=== PATIENT | female | born 1995 | race Caucasian/White ===

== ENCOUNTER → 2017-12-08 | Outpatient (CLI) | payer OTHER | END | disposition home or self-care (01) | LOC: C.LABSPEC 15:52 | PROVIDERS: ATTEND Obstetrics & Gynecology | DX: O26.899 Other specified pregnancy related conditions, unspecified trimester (principal); Z3A.00 Weeks of gestation of pregnancy not specified ==

== ENCOUNTER 2023-07-22 05:52 | Inpatient (IN) ==
--- NOTE | 2023-07-12 16:22 | Anesthesiology Consultation ---
Date of Service July 12, 2023 Assessment & Plan (1) Encounter for pre-operative examination: - CSE L3-L4 1 attempts. - Per special education curriculum specialist on 07/12/23: No known infectious disease contacts, current infectious disease symptoms in past 10 days or COVID positive test result in the past 30 days. 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 History Surgery Operation Date: 07/22/23 07:30 Proposed Procedures p Section in LD (Delivery of Baby through Abdominal Incision) - Mariann Mckeon MD, FACOG Height/Weight Height: 5 ft 7 in Weight: 123.377 kg Allergies Allergy/AdvReac Type Severity Reaction Status Date / Time No Known Drug Allergies Allergy Verified 07/12/23 15:27 adhesive AdvReac Mild Rash Verified 07/12/23 15: Medications Home Medications Medication Instructions Recorded Confirmed Last Taken loratadine 10 mg tablet 10 mg PO HS PRN Allergy Symptoms 03/17/18 07/12/23 11/07/19 montelukast 10 mg tablet 10 mg PO HS 11/08/19 07/12/23 11/07/19 magnesium oxide 400 mg PO HS #30 caps 07/13/21 07/12/23 Unknown acetone (urine) test (Ketone Urine #50 ea 03/22/23 07/12/23 Unknown Test strips) blood sugar diagnostic (OneTouch #150 ea 03/22/23 07/12/23 Unknown Verio test strips) blood-glucose meter (OneTouch #1 ea 03/22/23 07/12/23 Unknown Verio Reflect Meter) lancets 33 gauge (OneTouch Delica #150 ea 03/22/23 07/12/23 Unknown Plus Lancet) insulin NPH isoph U-100 human 100 10 unit (0.1 mL) subcut QPM #15 mL 06/20/23 07/12/23 Unknown unit/mL (3 mL) subcutaneous pen (Humulin N NPH U-100 Insulin KwikPen) pen needle, diabetic 32 gauge x #150 ea 06/20/23 07/12/23 Unknown 32" (BD Ultra-Fine Alyson Pen Needle) aspirin 81 mg capsule 81 mg PO HS 07/12/23 07/12/23 Unknown famotidine 40 mg tablet 40 mg PO HS 07/12/23 07/12/23 Unknown fluticasone propionate 50 1 spray intranasal BID 07/12/23 07/12/23 Unknown mcg/actuation nasal spray,suspension insulin lispro 100 unit/mL 10 - 12 unit subcut TID 07/12/23 07/12/23 Unknown subcutaneous pen (Humalog KwikPen (U-100) Insulin) vits no.126-ferrous fum 1 tab PO HS 07/12/23 07/12/23 Unknown 28 mg iron-folic acid 800 mcg tablet (Classic ) riboflavin (vitamin B2) 400 mg 400 mg PO HS 07/12/23 07/12/23 Unknown tablet venlafaxine 75 mg capsule,extended 75 mg PO HS 07/12/23 07/12/23 Unknown release 24 hr Past Medical History Medical History Allergic rhinitis Anxiety Current every day vaping quit Environmental and seasonal allergies GERD (gastroesophageal reflux disease) Gestational diabetes History of COVID-19 03/2023, tested thru pcp, not hosp; fever, headache, nasal congestion>resolved Hx of migraines Paroxysmal SVT (supraventricular tachycardia) had cardiac ablation 05/2022 at [facility] PONV (postoperative nausea and vomiting) Varicella vaccination Past Family History Family History Other Colon cancer Diabetes Hypertension Denies family history of Ovarian cancer Breast cancer Past Surgical History Surgical History H/O cardiac radiofrequency ablation 05/2022, [facility]; f/u pcp-cardio dismissed pt. History of bunionectomy of both great toes History of carpal tunnel release rt. History of lumpectomy of right breast benign History of tonsillectomy Previous section [place] teeth extracted Social History Smoking Status: Former smoker Do You Dip or Chew Tobacco: No Smoking End Date: summer 2022 quit vaping Hx Alcohol Use: Yes Alcohol type: wine Alcohol Intake Frequency Comment: occassional but not while Hx Substance Use: No substance use type: does not use
--- NOTE | 2023-07-21 17:02 | History & Physical Report ---
Date of Service July 21, 2023 Assessment & Plan (1) Previous delivery affecting , antepartum: Plan: IUP at 39+ weeks with prior LTCS for NRFRT followed by successful cervix today is unfavorable for IOL, will proceed with repeat LTCS unless labor or SPROM prior to 3/1 AM. the procedure and it's risks reviewed with the patient. all questions answered to her satisfaction. History of Present Illness Primary Care Provider: Jarret Levi MD Patient is a 27 yo EDC 07/24/23 presents 39 weeks for repeat LTCS. she had LTCS with her first delivery then successfully with her second baby. this is complicated by GDM on insulin. no spontaneous contractions yet. growth scans and testing has been reassuring although on last growth scan EFW was 97%tile & AC was 95%tile. GBS - negative Allergies Allergy/AdvReac Type Severity Reaction Status Date / Time No Known Drug Allergies Allergy Verified 07/21/23 15:35 adhesive AdvReac Mild Rash Verified 07/21/23 15:35 Home Medications Medication Instructions Recorded Confirmed Type loratadine 10 mg tablet 10 mg PO HS PRN Allergy Symptoms 03/17/18 07/21/23 History montelukast 10 mg tablet 10 mg PO HS 11/08/19 07/21/23 History magnesium oxide 400 mg PO HS #30 caps 07/13/21 07/21/23 Rx acetone (urine) test (Ketone Urine #50 ea 03/22/23 07/21/23 Rx Test strips) blood sugar diagnostic (OneTouch #150 ea 03/22/23 07/21/23 Rx Verio test strips) blood-glucose meter (OneTouch #1 ea 03/22/23 07/21/23 Rx Verio Reflect Meter) lancets 33 gauge (OneTouch Delica #150 ea 03/22/23 07/21/23 Rx Plus Lancet) insulin NPH isoph U-100 human 100 10 unit (0.1 mL) subcut QPM #15 mL 06/20/23 07/21/23 Rx unit/mL (3 mL) subcutaneous pen (Humulin N NPH U-100 Insulin KwikPen) pen needle, diabetic 32 gauge x #150 ea 06/20/23 07/21/23 Rx 5/32" (BD Ultra-Fine Alyson Pen Needle) aspirin 81 mg capsule 81 mg PO HS 07/12/23 07/21/23 History famotidine 40 mg tablet 40 mg PO HS 07/12/23 07/21/23 History fluticasone propionate 50 1 spray intranasal BID 07/12/23 07/21/23 History mcg/actuation nasal spray,suspension insulin lispro 100 unit/mL 10 - 12 unit subcut TID 07/12/23 07/21/23 History subcutaneous pen (Humalog KwikPen (U-100) Insulin) vits no.126-ferrous fum 1 tab PO HS 07/12/23 07/21/23 History 28 mg iron-folic acid 800 mcg tablet (Classic ) riboflavin (vitamin B2) 400 mg 400 mg PO HS 07/12/23 07/21/23 History tablet venlafaxine 75 mg capsule,extended 75 mg PO HS 07/12/23 07/21/23 History release 24 hr Patient History Medical History Allergic rhinitis Anxiety Current every day vaping quit Environmental and seasonal allergies GERD (gastroesophageal reflux disease) Gestational diabetes History of COVID-19 03/2023, tested thru pcp, not hosp; fever, headache, nasal congestion>resolved Hx of migraines Paroxysmal SVT (supraventricular tachycardia) had cardiac ablation 05/2022 at [facility] PONV (postoperative nausea and vomiting) Varicella vaccination Surgical History H/O cardiac radiofrequency ablation 05/2022, [facility]; f/u pcp-cardio dismissed pt. History of bunionectomy of both great toes History of carpal tunnel release rt. 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: No Beliefs That Will Affect Care: None marital status: Single marital status details: Helene Madsen([phone] Current Living Situation: Family Current Living Situation Comment: lives with daughters current occupational status: employed 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 Feels Safe at Home: Yes Assistive Devices: None Review of Systems All systems reviewed & are unremarkable except as noted in HPI & below Physical Exam Constitutional: WD/WN, vitals as above Psychiatric: A+Ox3, euthymic affect Genitourinary: OB Exam Abdomen: + vertex, + estimated weight (8-9 pounds) and + irregular contractions Manual OB Exam: + cervical dilation 1 cm, + cervical effacement 70% and + station (-3) OB Exam Monitor Tracing: + external FHT monitor used, + external uterine monitor used, + category I and + normal FHT variability Coding Level of Care Code None Diagnoses Previous delivery affecting , antepartum O34.219
[2023-07-22] MEDS ORDERED: SODIUM CHLORIDE 0.9% 250 ML IV PRN (06:03)
[2023-07-22 06:23] LABS: Basophils # (auto) 0.04 K/uL (0.00-0.20); Basophils % (auto) 0.3 %; Eosinophils # (auto) 0.05 K/uL (0.00-0.50); Eosinophils % (auto) 0.4 %; Hematocrit (blood only) 42.5 % (37.0-47.0); Hemoglobin 14.4 g/dl (12.0-16.0); Immature Granulocytes # (auto) 0.09 K/uL (0.01-0.20); Immature Granulocytes % (auto) 0.7 %; Lymphocytes # (auto) 1.66 K/uL (1.20-3.40); Mean Corpuscular Hemoglobin 28.2 pg (25.0-34.0); Mean Corpuscular Hgb Conc 33.9 g/dL (32.0-36.0); Mean Corpuscular Volume 83.2 fL (80.0-100.0); Mean Platelet Volume 11.2 fL (9.4-12.4); Monocytes # (auto) 0.88 K/uL (0.11-0.59); Monocytes % (auto) 6.9 %; Neutrophils # (auto) 10.03 K/uL (1.40-6.50); Neutrophils % (auto) 78.7 %; Platelet Count 234 K/uL (130-400); RDW Coefficient of Variation 14.4 % (11.5-14.5); RDW Standard Deviation 42.8 fL (36.4-46.3); Red Blood Count 5.11 M/uL (4.20-5.40); White Blood Count 12.75 K/ul (4.8-10.8)
[2023-07-22] MEDS: LACTATED RINGER'S 1,000 ML IV SCH ×2 (06:23→19:35)
[2023-07-22] MEDS: CITRIC ACID/SODIUM CITRATE 15 ML UDC PO SCH (07:35)
[2023-07-22] MEDS ORDERED: MoRPHine SULFATE PF 1 MG/ML 10 ML AMP/VIAL ONE (07:37)
--- NOTE | 2023-07-22 07:37 | History & Physical Bridge Note ---
Date of Service July 22, 2023 History & Physical Bridge Note I have examined the patient, reviewed the History & Physical and in the interval since the performance of the History & Physical I have noted the following changes of clinical significance: no changes noted
[2023-07-22] MEDS: ceFAZolin 3,000 MG in DEXTROSE 5% 50 ML IV SCH (08:14)
[2023-07-22] MEDS ORDERED: HYDROmorphone INJ 0.5 MG/0.5 ML SYR IV PRN (09:03)
[2023-07-22] MEDS ORDERED: PROMETHAZINE HCL 6.25 MG in SODIUM CHLORIDE 0.9% 50 ML IV PRN (09:03)
[2023-07-22] MEDS ORDERED: NALOXONE HCL 1 MG in SODIUM CHLORIDE 0.9% 1,000 ML IV PRN (09:03)
[2023-07-22] MEDS ORDERED: MoRPHine SULFATE 2 MG/ML CARP IV PRN (09:03)
[2023-07-22] MEDS ORDERED: ONDANSETRON INJ 2 MG/ML 2 ML VIAL IV PRN ×2 (09:03→10:01)
[2023-07-22] MEDS ORDERED: ePHEDrine sulfate 50 MG/ML AMP IV PRN (09:03)
[2023-07-22] MEDS ORDERED: NALOXONE HCL 0.4 MG/1 ML VIAL/CARP IV PRN (09:03)
[2023-07-22] MEDS ORDERED: NALOXONE HCL 0.08 MG in SYRINGE 1.8 ML IV PRN (09:03)
[2023-07-22] MEDS ORDERED: MEPERIDINE HCL 25 MG/ML CARP/VIAL IV PRN (09:03)
[2023-07-22] MEDS ORDERED: LACTATED RINGER'S 500 ML IV PRN (09:03)
[2023-07-22] MEDS ORDERED: DC INTRASPINAL MORPHINE SCH (09:15)
[2023-07-22] MEDS ORDERED: NO NARCOTICS OR SEDATIVES SCH (09:15)
[2023-07-22] MEDS ORDERED: OXYTOCIN 10 UNITS/ML VIAL ONE ×2 (09:17)
[2023-07-22] MEDS ORDERED: ePHEDrine sulfate 50 MG/5 ML SYR ONE (09:18)
--- NOTE | 2023-07-22 09:23 | Post Operative Brief Note ---
PG Immediate Post Op with CF Date of Surgery July 22, 2023 Pre & Post Diagnosis Operation Date: 07/22/23 07:30 Pre-Op Diagnosis: Prior section. Large for gestational age. GDM on insulin. Post-Op Diagnosis: Prior section. Large for gestational age. GDM on insulin. Delivery of live female child at 0844. I identified the patient and participated in the time-out.: Yes Procedure Operation Date: 07/22/23 07:30 Actual Procedures p Section (Delivery of Baby Through Abdominal Incision)delivery of live female child at 0844. - Mariann Mckeon MD, FACOG Surgeon Mariann Mckeon MD, FACOG Inspector Circuitry Negative Angelica Rivers MD, Damri Chu DO Estimated Blood Loss 797 (QBL) Findings Consistent with Post-Op Diagnosis Specimens Specimen Description: Placenta: hold Cord blood Drains [place] Catheter (inserted after spinal, draining clear yellow urine) Anesthesia Type Spinal Complications none Disposition Accompanied Patient To Recovery: Yes Disposition: L&D
[2023-07-22] MEDS ORDERED: MAGNESIUM HYDROXIDE SUSP 30 ML UDC PO PRN (10:01)
[2023-07-22] MEDS ORDERED: BENZOCAINE 20% SPRY 85 APPLN/85 GM CAN EXT PRN (10:01)
[2023-07-22] MEDS ORDERED: LORATADINE 10 MG TAB PO PRN (10:01)
[2023-07-22] MEDS ORDERED: HYDROCORTISONE ACETATE 25 MG SUPP PR PRN (10:01)
[2023-07-22] MEDS ORDERED: SENNA 8.6 MG TAB PO PRN (10:01)
--- NOTE | 2023-07-22 10:05 | Operative Report ---
PG Post Operative Report Pre & Post Diagnosis Operation Date: 07/22/23 07:30 Pre-Op Diagnosis: Prior section. Large for gestational age. GDM on insulin. Post-Op Diagnosis: Prior section. Large for gestational age. GDM on insulin. Delivery of live female child at 0844. I identified the patient and participated in the time-out.: Yes Procedure Operation Date: 07/22/23 07:30 Actual Procedures p Section (Delivery of Baby Through Abdominal Incision)delivery of live female child at 0844. - Mariann Mckeon MD, FACOG Surgeon Mariann Mckeon MD, FACOG Rug Setter [place] Angelica Rivers MD, Damir Chu DO Estimated Blood Loss 797 Findings Consistent with Post-Op Diagnosis Specimens placenta to hold Drains Castaneda catheter to straight drainage - clear urine at end of the case Anesthesia Type Spinal Complications none Disposition Accompanied Patient To Recovery: Yes Disposition: L&D Indications Patient is a 27-year-old 3 para 2-0-0-2 female EDC of 07/24/2023 who presents for repeat section. Her first section was done with her first because of nonreassuring heart rate pattern. She then had a successful with her second . This , she has GDM on insulin but she was hoping to again. However spontaneous labor has not occurred by the date of her default section schedule date, therefore we will proceed with repeat section. Description of Procedure After the patient received adequate subarachnoid block she was prepped and draped in usual sterile fashion. Low transverse skin incision was made through her prior scar and carried to the fascia with the same scalpel. The fascial incision was then extended with Alcocer scissors. The edges were then grasped with Tami clamps and the underlying rectus muscles bluntly sharply dissected off of the overlying fascia. The rectus muscles were then bluntly divided on the midline and the underlying peritoneum elevated and entered sharply with Metzenbaum scissors. The bladder was then taken down off the anterior surface of the uterus with Metzenbaum scissors and placed behind the bladder blade. The lower uterine segment was entered with a scalpel and the incision was extended by expanding the opening with an inferior superior stretching motion. Membranes were then ruptured for very thin meconium stained fluid. was delivered from the vertex presentation with the assistance of the Kiwi vacuum and moderate fundal pressure. After the head was delivered a nuchal cord was then reduced prior to delivering the shoulders. The was vigorous crying and moving all 4 limbs after initial stimulation. The cord was clamped and cut and the infant was handed off to Dr. Stokes who was in attendance as rocket engine component mechanic. The placenta was then manually removed. The uterus was then exteriorized to cover the clean lap sponge. The uterine cavity was explored and was found to be free of any retained tissue or membranes. Uterus was then closed in a running locking imbricating fashion in 2 layers with 0 Monocryl. Hemostasis was noted to be excellent on the incision. The posterior cul-de-sac was suctioned for small amount of blood. After examining the incision once more, the uterus was placed gently back inside the abdominal cavity. The incision continued to have excellent hemostasis and the gutters were clear of any extra clot or fluid. The rectus muscle were then brought together on the midline with individual stitches of 0 Monocryl. The fascia was closed in a running fashion with 0 Vicryl. After irrigating the subcutaneous layer, the skin edges were reapproximated using a subcuticular stitch of 4-0 Vicryl. Patient tolerated procedure well and was stable upon arrival back in labor and delivery. I attest to the content of the Intraoperative Record and any orders documented therein. Any exceptions are noted below. OB Procedure Charges 88134
[2023-07-22] MEDS: OXYTOCIN 30 UNITS/LR 1,003 ML IV SCH (10:20)
[2023-07-22] MEDS: KETOROLAC 30 MG/ML VIAL IV PRN (12:42)
[2023-07-22] MEDS: MoRPHine SULFATE PF 1 MG/ML 10 ML AMP/VIAL INT SPINAL ONE (12:50)
[2023-07-22] MEDS: SODIUM CHLORIDE 0.9% 1,000 ML IV SCH (12:51)
[2023-07-22] MEDS: DIPHTHER/TETAN/PERTUS Vaccine (Tdap, Adol/Adult) 0.5mL IM ONE (12:52)
--- NOTE | 2023-07-22 15:13 | Anesthesiology Progress Note ---
Date of Service July 22, 2023 Anesthesia Post Procedure Vital Signs Vital Signs: Temp Pulse Resp BP Pulse Ox O2 Del Method 07/22/23 12:03 93 H 96 07/22/23 11:58 82 104/66 98 07/22/23 11:53 93 H 99 07/22/23 11:48 78 108/55 L 97 07/22/23 11:43 81 98 07/22/23 11:38 84 114/58 L 98 07/22/23 11:33 80 97 07/22/23 11:28 36.7 C 22 07/22/23 11:28 98 07/22/23 11:28 80 07/22/23 11:28 78 116/62 07/22/23 11:25 96 H 90 07/22/23 11:23 84 98 07/22/23 11:18 85 114/68 99 07/22/23 11:13 83 99 07/22/23 11:09 85 116/71 07/22/23 11:08 81 98 07/22/23 11:03 79 100 07/22/23 10:58 73 103/60 99 07/22/23 10:53 73 99 07/22/23 10:48 98 07/22/23 10:48 70 07/22/23 10:48 68 108/60 07/22/23 10:43 82 98 07/22/23 10:41 85 93 07/22/23 10:38 66 105/63 98 07/22/23 10:33 74 99 07/22/23 10:28 36.5 C 18 07/22/23 10:28 71 102/65 99 07/22/23 10:23 75 99 07/22/23 10:18 100 07/22/23 10:18 78 07/22/23 10:18 69 108/59 L 07/22/23 10:13 73 100 07/22/23 10:08 74 109/59 L 100 07/22/23 10:03 88 100 07/22/23 09:58 80 102/59 L 100 07/22/23 09:53 86 100 07/22/23 09:48 99 07/22/23 09:48 82 07/22/23 09:48 82 101/59 L 07/22/23 09:45 75 82 L 07/22/23 09:43 77 99 07/22/23 09:39 85 84 L 07/22/23 09:38 79 96/52 L 99 07/22/23 09:33 83 99 07/22/23 09:28 36.5 C 18 07/22/23 09:28 82 99/56 L 99 07/22/23 06:10 36.7 C 18 Room Air 07/22/23 06:01 36.7 C 103 H 18 123/74 Transfer of Care Handoff Completed per policy Notes Mental Status: alert / awake / arousable and participated in evaluation Nausea / Vomiting: adequately controlled Pain: adequately controlled Airway Patency, RR, SpO2: stable & adequate BP & HR: stable & adequate Hydration State: stable & adequate Neuraxial Anesthesia: was administered and sensory block is resolving Anesthetic Complications: no major complications apparent and Pt Satisfied with anesthetic care
[2023-07-22] MEDS: NALBUPHINE HCL 5 MG in SYRINGE 0 ML IV PRN (16:19)
[2023-07-22] MEDS: SIMETHICONE 80 MG CHEW PO SCH (19:35)
[2023-07-22] MEDS ORDERED: [UNRECOGNIZED DRUG - REMARK] PO SCH (21:00)
[2023-07-22] MEDS ORDERED: NON-FORMULARY MEDICATION (Riboflavin (Vitamin B2) 400 mg tablet) PO SCH (21:00)
[2023-07-22] MEDS: DOCUSATE SODIUM 100 MG CAP PO SCH (21:02)
[2023-07-22] MEDS: ASPIRIN 81 MG ECTAB PO SCH (21:02)
[2023-07-22] MEDS: VENLAFAXINE HCL XR 75 MG CAPXR PO SCH (21:03)
[2023-07-22] MEDS: MONTELUKAST SODIUM 10 MG TABLET PO SCH (21:03)
[2023-07-22] MEDS: MAGNESIUM OXIDE 400 MG TAB PO SCH (21:04)
[2023-07-22] MEDS: FAMOTIDINE 40 MG TABLET PO SCH (21:04)
[2023-07-22] MEDS: FLUTICASONE PROPIONATE NA SPR 16 GM BTL SCH (21:05)
[2023-07-22] MEDS: diphenhydrAMINE 50 MG/ML VIAL IV PRN (23:24)
[2023-07-23] MEDS ORDERED: MEPERIDINE HCL 50 MG/ML CARP IV PRN (03:03)
[2023-07-23] MEDS ORDERED: diphenhydrAMINE 50 MG/ML VIAL IV PRN (03:03)
[2023-07-23] MEDS ORDERED: PROMETHAZINE HCL 25 MG in SODIUM CHLORIDE 0.9% 50 ML IV PRN (03:03)
[2023-07-23] MEDS ORDERED: KETOROLAC 30 MG/ML VIAL IV PRN (03:03)
[2023-07-23] MEDS ORDERED: diphenhydrAMINE Capsule 25 MG CAP PO PRN (03:03)
--- NOTE | 2023-07-23 06:58 | Obstetrical Progress Note ---
Date of Service July 23, 2023 Assessment & Plan (1) care and examination: Plan: doing well encourage ambulation pain control Admission and Anticipated Discharge Date Admission Date: July 22, 2023 Supervising Physician Co-Signing Physician Notes Resident Physician Supervision Note: I interviewed and examined the patient. Discussed with Dr. Chu and agree with findings and plan as documented in the note. Any exceptions or clarifications are listed here: [None] Documented By: Mariann Mckeon MD, FACOG Subjective 27 yo post day 1 s/p Ambulation: OOB Voiding: dodson out, voiding normally Passing Gas:: Yes Diet Tolerance:: regular diet Lochia:: Small Current Pain Level: Resting comfortably this AM in NAD. Denies KATE, CP, SOB, N/V/D, LE pain/swelling. Review of Systems Review of Systems: reviewed, per HPI Physical Exam Physical Exam: General: patient resting comfortably, NAD, non-toxic in appearance, answers questions appropriately. Skin: warm, dry, intact HEENT: NC/AT, anicteric sclera, conjunctiva without injection, moist mucus membranes. Heart: +S1/S2, regular, no m/r/g Lungs: equal air entry bilaterally, no rales/rhonchi/wheezes Abd: +BS, soft, NT/ND, uterine fundus firm at umbilicus, caesarean incision C/D/I. Ext: warm, no clubbing/cyanosis or edema, Aziza's neg. Neuro: nonfocal, speech intact, no facial droop, moving all extremities on command. Results & Data Vital Signs (Past 12 Hours) Vital Signs Temp Pulse Resp BP Pulse Ox O2 Del Method 07/23/23 03:15 36.9 C 85 16 98/63 L 96 Room Air 07/23/23 01:00 18 98 07/23/23 00:00 18 98 07/22/23 23:00 36.7 C 88 18 103/67 96 Room Air 07/22/23 22:00 18 97 07/22/23 20:55 36.7 C 87 18 104/69 98 Room Air 07/22/23 20:00 18 98 07/22/23 19:00 18 97 Resident Activity Tracking Resident Involvement: Resident Care Provided Care Provided: Adult Hospital Medicine
[2023-07-23 07:31] LABS: Basophils # (auto) 0.05 K/uL (0.00-0.20); Basophils % (auto) 0.5 %; Eosinophils # (auto) 0.14 K/uL (0.00-0.50); Eosinophils % (auto) 1.3 %; Hematocrit (blood only) 37.5 % (37.0-47.0); Hemoglobin 12.6 g/dl (12.0-16.0); Immature Granulocytes # (auto) 0.07 K/uL (0.01-0.20); Immature Granulocytes % (auto) 0.6 %; Lymphocytes # (auto) 1.33 K/uL (1.20-3.40); Mean Corpuscular Hemoglobin 28.8 pg (25.0-34.0); Mean Corpuscular Hgb Conc 33.6 g/dL (32.0-36.0); Mean Corpuscular Volume 85.8 fL (80.0-100.0); Mean Platelet Volume 11.4 fL (9.4-12.4); Monocytes # (auto) 0.67 K/uL (0.11-0.59); Neutrophils # (auto) 8.84 K/uL (1.40-6.50); Neutrophils % (auto) 79.6 %; Platelet Count 179 K/uL (130-400); RDW Coefficient of Variation 14.5 % (11.5-14.5); RDW Standard Deviation 44.9 fL (36.4-46.3); Red Blood Count 4.37 M/uL (4.20-5.40)
[2023-07-23] MEDS: PRENATAL VITAMIN 1 TAB PO SCH (08:07)
[2023-07-23] MEDS: FERROUS SULFATE 325 MG TAB PO SCH (08:07)
[2023-07-23] MEDS: IBUPROFEN 600 MG TAB PO PRN (08:07)
[2023-07-23] MEDS: oxyCODONE/ACETAMINOPHEN 5mg/325mg TAB PO PRN (08:07)
[2023-07-23] MEDS: bisacodyL 5 MG TABEC PO SCH (20:11)
[2023-07-24 08:02] LABS: Hematocrit (blood only) 33.6 % (37.0-47.0)
[2023-07-24] MEDS ORDERED: bisacodyL 10 MG SUPP PR PRN (09:14)
--- NOTE | 2023-07-24 11:16 | Obstetrical Progress Note ---
Date of Service July 24, 2023 Assessment & Plan (1) care and examination: Plan Day 2 status post repeat . Doing well. Stable for discharge Subjective Ambulation: ambulating normally Voiding: no voiding problems Passing Gas:: Yes Diet Tolerance:: regular diet Lochia:: Moderate Feeding Type:: breast feeding Denies calf tender Physical Exam Constitutional WD/WN, vitals as above Respiratory normal respiratory effort; no respiratory distress and no labored breathing Gastrointestinal (Abdomen) Inspection/Auscultation: abdomen normal to inspection; abdomen not distended Percussion/Palpation: abdomen soft; abdomen nontender, no guarding and abdomen not rigid Incision healing well Genitourinary OB Exam Abdomen: + fundal height Fundus: + firm and + relation to umbilicus (Below); not tender or not boggy Results & Data Vital Signs (Past 12 Hours) Vital Signs Temp Pulse Resp BP Pulse Ox O2 Del Method 07/24/23 08:00 36.7 C 73 20 105/68 97 Room Air 07/23/23 23:56 36.7 C 77 14 102/69 Room Air
--- NOTE | 2023-07-26 13:16 | Discharge Summary ---
Date of Service July 26, 2023 Admission HPI Per Admitting Provider Patient is a 27 yo EDC [birth year] presents 39 weeks for repeat LTCS. she had LTCS with her first delivery then successfully with her second baby. this is complicated by GDM on insulin. no spontaneous contractions yet. growth scans and testing has been reassuring although on last growth scan EFW was 97%tile & AC was 95%tile. GBS - negative Admission Exam (Per Admitting) Constitutional WD/WN, vitals as above Psychiatric A+Ox3, euthymic affect Genitourinary OB Exam Abdomen: + vertex, + estimated weight (8-9 pounds) and + irregular contractions Manual OB Exam: + cervical dilation + 1 cm, + cervical effacement + 70% and + station (-3) OB Exam Monitor Tracing: + external FHT monitor used, + external uterine monitor used, + category I and + normal FHT variability Discharge Data Consultations 07/22/23 06:00 Consult Anesthesiology Stat Procedures Performed Operation Date: 07/22/23 07:30 Actual Procedures p Section (Delivery of Baby Through Abdominal Incision)delivery of live female child at 0844. - aMriann Mckeon MD, [facility] Course (1) care and examination: Plan Day 2 status post repeat . Doing well. Stable for discharge Discharge Plan Discharge Items Patient Disposition: Home - Self-Care Reason For Visit: History of Section Discharge Diagnosis: c/s Activity: Per Instructions section Non-emergency contact: Primary Care Provider and Filtration Operator Call non-emergency contact if: you have any medication questions, your pain is not controlled, your pain is worsening, you have a fever and your temperature is above 101 Follow-up/Referrals: Jarret Levi MD [Primary Care Provider] - Diet: Regular OB Addtl Attending Provider Instructions: ACTIVITY RECOMMENDATIONS: * Gradual return to full activity over the next 2-3 weeks. * No lifting - nothing heavier than baby over the next 2-3 weeks. * Do not engage in vigorous exercise, sexual activity or sports until cleared by your physician. * Do not drive or operate any motorized equipment until cleared by your physician. * You may shower/bathe daily. MEDICATIONS: For discomfort or pain, you may use Acetaminophen (Tylenol), Ibuprofen (Advil), or Naproxen (Aleve) following the package directions. For constipation you may use Colace following the package directions. BREAST CARE: If you are not breast feeding: * Wear a supportive bra 24 hours a day for one to two weeks. * Avoid stimulating your breasts and nipples as much as possible during the first few weeks after delivery. * When taking a shower, have the warm water hit your back, not breasts. * When your breasts feel full, apply ice packs. Usually three to four times a day helps ease the discomfort. * Take a mild pain medication (Tylenol / Motrin) when you are uncomfortable. If breast feeding: * Use breast milk to lubricate nipples. Lansinoh cream may be used for sore nipples. You do not need to remove cream prior to breast feeding. If using a different brand of cream, check the label for directions regarding removal of cream prior to nursing. * Wear a supportive bra. * If having problems with breasts or breast feeding, call a field technical support consultant or your health care provider. SPECIAL CARE INSTRUCTIONS: When you are discharged from the hospital, it is important for you to follow the instructions listed below: * During the first week at home, you should be able to care for yourself and your baby. In addition, the usual light household activities are encouraged. * Limit your activities to the way you feel. Do not try to clean the house or move furniture. Be sensible. * If you actively engage in sports and have done so up until the time of your delivery, you may resume these activities as soon as you feel able. This may take up to one month or even longer. Use good judgment. * Continue to take your vitamins for at least six weeks after the bi rth of your baby. * Your diet need not be limited unless you were on a special diet before your delivery. Breast-feeding mothers need around 2500 calories per day and at least 64-80 ounces of fluid per day (8 to 10 glasses). * You should eat foods from the four major food groups. Crash diets or fad diets are to be avoided. Eating lean meats, fresh fruits and vegetables, low-fat dairy products, high fiber foods and a regular exercise program, will help you get back to your pre- weight without putting your health at risk. * Constipation is sometimes a problem after delivery. Take a mild laxative as needed. If breast feeding, Milk of Magnesia is acceptable to use. You may use a suppository or Fleets enema. * A daily shower or tub bath is suggested. Wash incision daily with warm soapy water and pat dry. It doesn't need to be covered unless drainage is present. * A bloody vaginal discharge will usually continue until around four weeks . A small amount of bleeding may continue for as long as six weeks. Vaginal discharge changes from the bright red bleeding after delivery to pink then brownish and finally yellowish-pink before becoming white and disappearing. * Bleeding may increase with activity. Your first period may come in 4-8 weeks. If you are breast feeding, your period may be delayed even longer. * Bejou (sex) can begin whenever both you and your partner feel comfortable and do not have any form of genital infection. It is recommended that you wait at least six weeks for internal and external healing to occur. If you have questions, please talk to your health care practitioner. A condom should be used to prevent infection and . * Foreplay, gentle intercourse and lubrication is very important the first several times to prevent pain. A water-based lubricant such as K-Y jelly or Astroglide may be used. * If you have RH negative blood and your baby is RH positive, you will receive RHOGAM by injection prior to discharge. The nurse will give you a card to keep with you that has the date and place that you received RHOGAM after delivery. * During your care, you had a Rubella screen done to check for the presence of rubella antibodies in your blood. If your test was negative, you will receive a Rubella vaccine prior to discharge. This vaccine may cause a fever, soreness at the injection site and flu-like symptoms. If these symptoms persist, notify your health care practitioner. is not advised for one month after a Rubella vaccine. * Verbalizes understanding of car seat law as reviewed with patient nursing. * Car Seat hand-out given and reviewed with patient by nursing. * Shaken baby information reviewed with patient by nursing. Call you doctor if: * Heavy bleeding (saturating several pads an hour) or passing clots the size of your fist. * A fever >101 degrees F (38.3 degrees C) on two occasions four hours apart and/or chills. * Unusual pain in the pelvic or vaginal areas. * Call the doctor for any increased redness, drainage or swelling around the incision and any pain unrelieved by prescribed pain medication. * "Baby Blues" lasting longer than two weeks. If you have any questions or concerns, call your health care practitioner at . FOLLOW UP VISIT: * Please call the office at to schedule a 6 week ex amination. It is important you keep this appointment. It is important for you to make arrangements for either yearly or twice yearly check-ups thereafter. Pending Studies at Discharge: No Stand-Alone Forms: [facility] Medications and DC Order Prescriptions: New oxycodone-acetaminophen [Percocet] 5-325 mg Tablet 1 tab PO Q4H PRN (Reason: pain) Qty: 14 0RF Continued magnesium oxide 400 mg magnesium capsule 400 mg PO HS Qty: 30 11RF loratadine 10 mg tablet 10 mg PO HS PRN (Reason: Allergy Symptoms) montelukast 10 mg tablet 10 mg PO HS venlafaxine 75 mg capsule,extended release 24hr 75 mg PO HS famotidine 40 mg tablet 40 mg PO HS fluticasone propionate 50 mcg/actuation Stollings,Suspension 1 spray INTRANASAL BID Rx Instructions: administer into each nostril Classic 28 mg iron- 800 mcg tablet 1 tab PO HS riboflavin (vitamin B2) 400 mg tablet 400 mg PO HS aspirin 81 mg Capsule 81 mg PO HS Discontinued Humulin N NPH Insulin KwikPen 100 unit/mL (3 mL) insulin pen 10 unit subcut QPM Qty: 15 0RF Rx Instructions: inject 10 units at bed time; increase as needed to keep fasting blood sugars below 80 mg/dl; TDD up to 40 units a day (DME) pen needle, diabetic [BD Ultra-Fine Alyson Pen Needle] 32 gauge x 5/32" needle See Rx Instructions miscellaneous .MEDSUPPLY Qty: 150 1RF Rx Instructions: As directed to use with insulin pens 4 times a day (DME) Ketone Urine Test Strip See Rx Instructions .MEDSUPPLY Qty: 50 5RF Rx Instructions: As directed to check ketones in urine once a day in the morning (DME) OneTouch Verio test strips Strip See Rx Instructions .MEDSUPPLY Qty: 150 5RF Rx Instructions: check blood sugars 4 times a day (DME) blood-glucose meter [OneTouch Verio Reflect Meter] Misc See Rx Instructions miscellaneous .MEDSUPPLY Qty: 1 0RF Rx Instructions: As directed (DME) lancets [OneTouch Delica Plus Lancet] 33 gauge misc See Rx Instructions .MEDSUPPLY Qty: 150 5RF Rx Instructions: As directed check blood sugars 4 times a day insulin lispro [Humalog KwikPen Insulin] 100 unit/mL insulin pen 10 - 12 unit subcut TID Rx Instructions: Inject 12 units with higher carbohydrate meals; increase as needed up to TDD of 50 units a day Discharge Orders: Discharge Order (Routine); Ordered 07/24/23 Ordered By: Bird Olmedo/Other Patient Handouts: Understanding Blues, Expressing Your Milk, After Delivery [place] Concerns, Nutrition While , Preventing Deep Vein Thrombosis, Understanding Depression, : Caring for Yourself, Section Dc, Parent Expectations, Feeling Healthy, Staying Fit Admission Data Admit Date/Time: 07/22/23 05:52 Attending Provider: Mariann Mckeon Admit Provider: Mariann Mckeon Primary Care Provider: Jarret Levi Other Providers: Ramone Hilton Other Interventions: Discharge Summary Assessment (RN) Last Done: 07/24/23 11:00 Coding Level of Care Code 96426 IN/OBS DISCH 30 MIN/LESS Diagnoses care and examination Z39.2
== END 2023-07-24 12:15 | disposition home or self-care (01) | DRG 788 ==
LOC: 4S1 05:52 → 4E2 12:29 → EDSTATUS 07-25 09:20